=== PATIENT | female | born 1990 | race Hispanic/Latino ===

== ENCOUNTER 2018-07-04 07:25 | Emergency (ER) | payer BC, OTHER | END 2018-07-04 08:28 | disposition home or self-care (01) | LOC: EDH 07:25 | DX: S83.8X1A Sprain of other specified parts of right knee, initial encounter (principal); Z98.51 Tubal ligation status; Z98.890 Other specified postprocedural states; X50.1XXA Overexertion from prolonged static or awkward postures, initial encounter; Y93.89 Activity, other specified; Y92.89 Other specified places as the place of occurrence of the external cause; Y99.8 Other external cause status | CPT/HCPCS: 73562 ==

== ENCOUNTER 2022-03-22 20:58 | Inpatient (IN) | payer BC, OTHER ==
[~2022-03-22] VITALS: Ht 160 cm; Wt 79.9 kg
[2022-03-22 21:34] LABS: BASOPHILS % (AUTO) 0.1 % (0.0-5.0); EOSINOPHILS % (AUTO) 0.1 % (0.0-8.0); HEMATOCRIT 36.5 % (36-48); LYMPHOCYTES % (AUTO) 6.5 % (21.0-51.0); MEAN CORPUSCULAR HEMOGLOBIN 27.9 pg (27.0-33.0); MEAN CORPUSCULAR HGB CONC 33.4 g/dL (32.0-36.0); MEAN CORPUSCULAR VOLUME 83.3 fL (79-99); MONOCYTES % (AUTO) 8.7 % (3.0-13.0); PLATELET COUNT (AUTO) 106 K/uL (130-400); RED BLOOD CELL COUNT(AUTO) 4.38 MIL/uL (4.00-5.50); RED CELL DISTRIBUTION WIDTH 13.2 % (11.0-15.5); WHITE BLOOD COUNT (AUTO) 10.7 K/uL (4.8-10.8)
[2022-03-22 21:42] LABS: APPEARANCE,URINE CLOUDY (CLEAR); BILIRUBIN,URINE NEGATIVE (NEGATIVE); COLOR,URINE YELLOW (YELLOW); CREATININE 1.2 mg/dL (0.5-1.5); GLUCOSE, URINE (UA) NEGATIVE (NEGATIVE); KETONES,URINE 40 mg/dL (NEGATIVE); LEUKOCYTE ESTERASE ,URINE MODERATE (NEGATIVE); NITRATE,URINE POSITIVE (NEGATIVE); OCCULT BLOOD,URINE SMALL (NEGATIVE); POTASSIUM 3.6 mmol/L (3.5-5.1); PROTEIN,URINE 30 mg/dL (NEGATIVE); UROBILINOGEN,URINE 0.2 mg/dL (0.2-1.0)
[2022-03-22 21:46] LABS: ALBUMIN 3.5 g/dL (3.5-5.0); BILIRUBIN,TOTAL 0.7 mg/dL (0.2-1.0); TOTAL PROTEIN, SERUM 7.6 g/dL (6.0-8.3)
[2022-03-22 21:51] LABS: BACTERIA,URINE Few /HPF (None Seen); SQUAMOUS EPITHELIAL CELL,UR Moderate /HPF (0-2)
[2022-03-22] MEDS ORDERED: 0.9%NACL 1000ML 1,000 ML IV ONE (22:00)
[2022-03-22] MEDS ORDERED: IOHEXOL 350 MG/ML 100ML INFUS..BTL IV ONE (22:28)
[2022-03-22] MEDS ORDERED: MORPHINE 4 MG SYG IVP ONE (22:30)
[2022-03-22] MEDS ORDERED: ONDANSETRON 4MG INJ IVP ONE (22:30)
[2022-03-23] VITALS (7 sets, daily range): BP systolic 90–141; BP diastolic 40–76
[2022-03-23] MEDS ORDERED: CEFTRIAXONE 1G VIAL IVP ONE (00:30)
[2022-03-23] MEDS ORDERED: ACETAMINOPHEN 325 MG TAB ONE (00:50)
[2022-03-23] MEDS ORDERED: DiphenhydrAMINE HCL 50 MG/ML VIAL IV PRN (01:00)
[2022-03-23] MEDS: LACTATED RINGERS 1000ML 1,000 ML IV SCH ×3 (01:00→21:25)
[2022-03-23] MEDS: ACETAMINOPHEN 325 MG TAB PO PRN ×4 (01:01→20:01)
[2022-03-23] MEDS ORDERED: MORPHINE 2 MG SYG ONE (04:41)
[2022-03-23] MEDS ORDERED: ZOSYN 3.375GM+NS 50ML 50 ML IV SCH (05:00)
[2022-03-23] MEDS ORDERED: MORPHINE 2 MG SYG IVP ONE (05:00)
[2022-03-23 06:06] LABS: BASOPHILS % (AUTO) 0.2 % (0.0-5.0); HEMATOCRIT 34.2 % (36-48); LYMPHOCYTES % (AUTO) 13.3 % (21.0-51.0); MEAN CORPUSCULAR HEMOGLOBIN 27.2 pg (27.0-33.0); MEAN CORPUSCULAR HGB CONC 32.5 g/dL (32.0-36.0); MEAN CORPUSCULAR VOLUME 83.8 fL (79-99); MONOCYTES % (AUTO) 10.8 % (3.0-13.0); NEUTROPHILS % (AUTO) 75.3 % (40.0-77.0); PLATELET COUNT (AUTO) 100 K/uL (130-400); RED BLOOD CELL COUNT(AUTO) 4.08 MIL/uL (4.00-5.50); RED CELL DISTRIBUTION WIDTH 13.3 % (11.0-15.5); WHITE BLOOD COUNT (AUTO) 8.9 K/uL (4.8-10.8)
[2022-03-23 06:22] LABS: CREATININE 1.1 mg/dL (0.5-1.5); POTASSIUM 3.6 mmol/L (3.5-5.1)
[2022-03-23] MEDS: FAMOTIDINE 20MG VIAL IV SCH ×2 (09:11→21:18)
[2022-03-23] MEDS: ENOXAPARIN SODIUM 40 MG/0.4 ML SYRINGE SQ SCH (09:11)
[2022-03-23] MEDS: MEROPENEM 1 GM VIAL IVP SCH ×2 (12:38→19:49)
[2022-03-23] MEDS: ONDANSETRON 4MG INJ IV PRN (13:43)
[2022-03-23] MEDS ORDERED: KETOROLAC 15MG/ML VIAL (15MG/ML) IV PRN (14:00)
[2022-03-23] MEDS ORDERED: MORPHINE 2 MG SYG IVP PRN (14:00)
[2022-03-23] MEDS ORDERED: KCL 20 MEQ ERTAB PO SCH (17:30)
[2022-03-23] MEDS: TAMSULOSIN HCL 0.4 MG CAP.ER.24H PO SCH (21:18)
[2022-03-24] MEDS: MEROPENEM 1 GM VIAL IVP SCH ×2 (03:34→11:15)
[2022-03-24 04:00] VITALS: BP 114/62
[2022-03-24] MEDS: ACETAMINOPHEN 325 MG TAB PO PRN ×2 (04:17→19:54)
[2022-03-24 05:09] LABS: EOSINOPHILS % (AUTO) 0.1 % (0.0-8.0); HEMATOCRIT 30.1 % (36-48); LYMPHOCYTES % (AUTO) 13.2 % (21.0-51.0); MEAN CORPUSCULAR HGB CONC 33.6 g/dL (32.0-36.0); MEAN CORPUSCULAR VOLUME 83.4 fL (79-99); MONOCYTES % (AUTO) 13.9 % (3.0-13.0); NEUTROPHILS % (AUTO) 72.2 % (40.0-77.0); PLATELET COUNT (AUTO) 116 K/uL (130-400); RED BLOOD CELL COUNT(AUTO) 3.61 MIL/uL (4.00-5.50); RED CELL DISTRIBUTION WIDTH 13.2 % (11.0-15.5); WHITE BLOOD COUNT (AUTO) 7.3 K/uL (4.8-10.8)
[2022-03-24 05:17] LABS: HEMOGLOBIN A1C 5.8 % (4.0-6.0)
[2022-03-24 05:31] LABS: ALBUMIN 2.6 g/dL (3.5-5.0); BILIRUBIN,TOTAL 0.6 mg/dL (0.2-1.0); CREATININE 1.1 mg/dL (0.5-1.5); MAGNESIUM 1.3 mg/dL (1.80-2.40); POTASSIUM 3.4 mmol/L (3.5-5.1); TOTAL PROTEIN, SERUM 6.2 g/dL (6.0-8.3)
[2022-03-24] MEDS: LACTATED RINGERS 1000ML 1,000 ML IV SCH (07:00)
[2022-03-24 07:48] VITALS: BP 113/66
[2022-03-24] MEDS: FAMOTIDINE 20MG VIAL IV SCH ×2 (09:02→19:53)
[2022-03-24] MEDS: ENOXAPARIN SODIUM 40 MG/0.4 ML SYRINGE SQ SCH (09:03)
[2022-03-24] MEDS ORDERED: KCL 20 MEQ ERTAB PO SCH ×2 (11:30→14:00)
[2022-03-24] MEDS ORDERED: MAGNESIUM 2GM PREMIX 50ML 50 ML IV PRN (11:30)
[2022-03-24 12:12] VITALS: BP 112/57
[2022-03-24 12:44] LABS: % IRON SATURATION 3.3 % (22-44)
[2022-03-24 15:49] VITALS: BP 95/59
[2022-03-24] MEDS: CEFTRIAXONE 1G VIAL IVP SCH (18:05)
[2022-03-24] MEDS: TAMSULOSIN HCL 0.4 MG CAP.ER.24H PO SCH (19:53)
[2022-03-24 20:00] VITALS: BP 114/73
[2022-03-24 23:34] VITALS: BP 99/52
[2022-03-25 03:27] VITALS: BP 122/74
[2022-03-25] MEDS: ACETAMINOPHEN 325 MG TAB PO PRN ×2 (03:27→17:02)
[2022-03-25 05:06] LABS: BASOPHILS % (AUTO) 0.2 % (0.0-5.0); EOSINOPHILS % (AUTO) 1.8 % (0.0-8.0); HEMATOCRIT 30.7 % (36-48); LYMPHOCYTES % (AUTO) 17.8 % (21.0-51.0); MEAN CORPUSCULAR HGB CONC 33.9 g/dL (32.0-36.0); MEAN CORPUSCULAR VOLUME 82.7 fL (79-99); MONOCYTES % (AUTO) 17.1 % (3.0-13.0); NEUTROPHILS % (AUTO) 62.6 % (40.0-77.0); PLATELET COUNT (AUTO) 136 K/uL (130-400); RED BLOOD CELL COUNT(AUTO) 3.71 MIL/uL (4.00-5.50); RED CELL DISTRIBUTION WIDTH 13.5 % (11.0-15.5); WHITE BLOOD COUNT (AUTO) 5.6 K/uL (4.8-10.8)
[2022-03-25 05:19] LABS: POTASSIUM 3.9 mmol/L (3.5-5.1)
[2022-03-25] MEDS: FAMOTIDINE 20MG VIAL IV SCH ×2 (07:40→20:58)
[2022-03-25 08:16] VITALS: BP 105/68
[2022-03-25] MEDS: ONDANSETRON 4MG INJ IV PRN (09:01)
[2022-03-25 11:47] VITALS: BP 121/67
[2022-03-25] MEDS: CEFTRIAXONE 1G VIAL IVP SCH (14:08)
[2022-03-25] MEDS ORDERED: CEFUROXIME AXETIL 250 MG TABLET PO SCH (15:00)
[2022-03-25 16:00] VITALS: BP 107/67
[2022-03-25 20:44] VITALS: BP 109/62
[2022-03-25] MEDS ORDERED: Cefuroxime Axetil PO (21:15)
== END 2022-03-25 22:20 | disposition home or self-care (01) | DRG 872 ==
LOC: EDH 20:58 → EDHIP 20:59 → 4BH 03-23 01:31
PROVIDERS: ADMIT Hospitalist; ATTEND Hospitalist
DX: A41.9 Sepsis, unspecified organism (principal); N10 Acute pyelonephritis; D64.9 Anemia, unspecified; D69.6 Thrombocytopenia, unspecified; Z87.442 Personal history of urinary calculi; Z20.822 Contact with and (suspected) exposure to COVID-19; B96.20 Unspecified Escherichia coli [E. coli] as the cause of diseases classified elsewhere
CPT/HCPCS: 36415; 74177; 80048; 80053; 81001; 81025; 82728; 83036; 83540; 83550; 83605; 83735; 85025; 87040; 87077; 87088; 87186; 87635; C9803; G0378; J0696; J1650; J2185; J2270; J2405; J2543; J3475; J3490; J7030; J7120; Q9967